=== PATIENT | female | born 1995 | race Caucasian/White ===

== ENCOUNTER 2018-08-23 12:11 | Emergency (ER) | payer SELFPAY ==
[~2018-08-23] VITALS: Ht 165.1 cm; Wt 57.7 kg
[2018-08-23] MEDS ORDERED: LIDOCAINE 2% W/EPIN INJ 20ML **PRES FREE INJ ONE (13:00)
[2018-08-23] MEDS ORDERED: IBUP80TA PO (13:03)
[2018-08-23] MEDS ORDERED: AUGM875T28 PO (13:03)
[2018-08-23] MEDS ORDERED: PERC5TAB12 PO (13:20)
[2018-08-23 13:27] VITALS: BP 116/72
== END 2018-08-23 13:29 | disposition home or self-care (01) ==
LOC: M ED 12:11
DX: K02.9 Dental caries, unspecified (principal); R68.84 Jaw pain; M41.9 Scoliosis, unspecified; Z88.8 Allergy status to other drugs, medicaments and biological substances; Z87.891 Personal history of nicotine dependence

== ENCOUNTER 2018-09-16 16:05 | Emergency (ER) | payer SELFPAY ==
[~2018-09-16] VITALS: Ht 165.1 cm; Wt 58.2 kg
[~2018-09-16 16:05] MED LIST: AUGM875T28 PO; IBUP80TA PO; PERC5TAB12 PO
[2018-09-16 18:42] LABS: BASO # 0.1 10^3/uL (0.0-0.2); BASO % 0.7 % (0.0-1.0); EOS # 0.1 10^3/uL (0.0-0.50); HEMATOCRIT 34.4 % (36.0-47.0); HEMOGLOBIN 9.9 g/dl (12.0-15.5); LYMPH # 2.3 10^3/uL (1.5-6.5); LYMPH % 32.3 % (24.0-44.0); MEAN CORPUSCULAR HEMOGLOBIN 19.6 pg (27.0-33.0); MEAN CORPUSCULAR HGB CONC 28.8 g/dl (32.0-36.5); MEAN CORPUSCULAR VOLUME 68.1 fl (80.0-96.0); MONO # 0.7 10^3/uL (0.0-0.8); MONO % 9.2 % (0.0-5.0); NEUTROPHILS % 56.5 % (36.0-66.0); PLATELET COUNT, AUTOMATED 394 10^3/uL (150-450); RED BLOOD COUNT 5.05 10^6/uL (4.00-5.40); WHITE BLOOD COUNT 7.1 10^3/uL (4.0-10.0)
[2018-09-16 19:08] LABS: ALBUMIN 3.7 GM/DL (3.2-5.2); ALT/SGPT 20 U/L (12-78); BILIRUBIN,DIRECT 0.1 MG/DL (0.0-0.2); BILIRUBIN,TOTAL 0.4 MG/DL (0.2-1.0); BLOOD UREA NITROGEN 18 MG/DL (7-18); CALCIUM LEVEL 8.7 MG/DL (8.5-10.1); CARBON DIOXIDE LEVEL 28 MEQ/L (21-32); CHLORIDE LEVEL 105 MEQ/L (98-107); GLOMERULAR FILTRATION RATE > 60.0 (>60); GLUCOSE, FASTING 74 MG/DL (70-100); LIPASE 102 U/L (73-393); POTASSIUM SERUM 3.8 MEQ/L (3.5-5.1); SODIUM LEVEL 140 MEQ/L (136-145); TOTAL PROTEIN 8.5 GM/DL (6.4-8.2)
[2018-09-16 20:02] VITALS: BP 129/74
--- NOTE | 2018-09-16 20:18 | REPVR ---
EXAM: US Pelvis Complete, Transabdominal and US Pelvis, Transvaginal EXAM DATE/TIME: 09/16/2018 7:38 PM CLINICAL HISTORY: 22 years old, female; Pelvic pain; Additional info: Pelvic pain; R/O cyst/endometriosis TECHNIQUE: Imaging protocol: Real-time transabdominal and transvaginal pelvic ultrasound (complete) with image documentation. Transvaginal imaging was used for better evaluation of the endometrium and adnexa. COMPARISON: No relevant prior studies available. FINDINGS: Uterus/cervix: Uterus measures 8.7 x 4.9 x 5.6 cm. Endometrial echocomplex measures 12.6 mm. Finding consistent with late proliferative phase. Right adnexa: Right ovary measures 3.2 x 2.3 x 2.7 cm. Resistive index 0.47. Left adnexa: Left ovary measures 3.6 x 2.2 x 2.4 cm. resistive index 0.57. Complex lesion in the left ovary measures 2.4 x 2 x 2 centimeters demonstrating increased Doppler flow. Finding may represent a corpus luteum. Free fluid: Trace of free fluid in the left cul-de-sac. Bladder: Normal. IMPRESSION: Thickened endometrial echo complex consistent with cycle stage. Complex lesion left ovary likely represents a corpus luteum. Electronically signed by: Anthony Coffey On 09/16/2018 20:17:37 PM
--- NOTE | 2018-09-18 14:10 | ED PDOC ---
Post-Departure Follow-Up dr ross faxed formal report of pelvis us for fu Ashley Urbina MD September 18, 2018 14:10
== END 2018-09-16 20:09 | disposition home or self-care (01) ==
LOC: M ED 16:05
DX: D50.9 Iron deficiency anemia, unspecified (principal); R10.2 Pelvic and perineal pain; J45.909 Unspecified asthma, uncomplicated; Z88.8 Allergy status to other drugs, medicaments and biological substances

== ENCOUNTER 2018-09-22 13:24 | Emergency (ER) | payer MEDICAID, OTHER, SELFPAY ==
[~2018-09-22] VITALS: Ht 165.1 cm; Wt 60.5 kg
[2018-09-22 14:04] LABS: BASO % 0.6 % (0.0-1.0); EOS # 0.1 10^3/uL (0.0-0.50); EOS % 1.9 % (0.0-3.0); HEMATOCRIT 33.9 % (36.0-47.0); HEMOGLOBIN 9.8 g/dl (12.0-15.5); LYMPH # 1.6 10^3/uL (1.5-6.5); MEAN CORPUSCULAR HGB CONC 28.9 g/dl (32.0-36.5); MEAN CORPUSCULAR VOLUME 69.3 fl (80.0-96.0); MONO # 0.5 10^3/uL (0.0-0.8); MONO % 7.3 % (0.0-5.0); NEUTROPHILS # 4.6 10^3/uL (1.8-7.7); NEUTROPHILS % 67.1 % (36.0-66.0); PLATELET COUNT, AUTOMATED 328 10^3/uL (150-450); RED BLOOD COUNT 4.89 10^6/uL (4.00-5.40); WHITE BLOOD COUNT 6.9 10^3/uL (4.0-10.0)
[2018-09-22 14:30] LABS: ALBUMIN 3.4 GM/DL (3.2-5.2); ALT/SGPT 19 U/L (12-78); BILIRUBIN,DIRECT < 0.1 MG/DL (0.0-0.2); BILIRUBIN,TOTAL 0.5 MG/DL (0.2-1.0); BLOOD UREA NITROGEN 15 MG/DL (7-18); CALCIUM LEVEL 8.2 MG/DL (8.5-10.1); CARBON DIOXIDE LEVEL 27 MEQ/L (21-32); CHLORIDE LEVEL 104 MEQ/L (98-107); CREATININE FOR GFR 0.77 MG/DL (0.55-1.30); GLOMERULAR FILTRATION RATE > 60.0 (>60); GLUCOSE, FASTING 80 MG/DL (70-100); LIPASE 131 U/L (73-393); POTASSIUM SERUM 3.7 MEQ/L (3.5-5.1); SODIUM LEVEL 141 MEQ/L (136-145); TOTAL PROTEIN 7.8 GM/DL (6.4-8.2)
--- NOTE | 2018-09-22 15:48 | REP ---
Clinical: Acute pelvic pain . Technique: Transabdominal pelvic ultrasound followed by transvaginal examination for better evaluation of the endometrium and adnexa with color Doppler evaluation of the ovaries. Comparison: 09/16/2018 Findings: Bladder is unremarkable and measures 6.2 x 5.4 x 8.9 cm . Anteverted uterus measures 9.9 x 5.5 x 7.4 cm and includes 1.1 cm left anterior intramural fibroid. The endometrial complex measures 10.8 mm thickness. No discrete uterine or endometrial abnormalities are appreciated. Bilateral ovaries are normal in appearance and vascularity without evidence for torsion. Right ovary measures 3.7 x 1.4 x 1.9 cm with 2.2 cm paraovarian cyst ; R I = 0.60 . Left ovary measures 4.3 x 2.1 x 2.6 cm with 1.8 cm hemorrhagic cyst ; R I = 0.46 . No pelvic fluid or adnexal mass lesion. Impression: 1. Current examination suggests a 1.1 cm intramural fibroid which was not identified on prior examination. 2. Left hemorrhagic cyst has decreased in size from prior examination. 3. New 2.2 cm simple right paraovarian cyst likely physiologic. There is no evidence for torsion. Reevaluation in 4-6 weeks may be warranted to evaluate for resolution. Electronically Signed by Chinmay Webster MD 09/22/2018 03:39 P
[2018-09-22 15:53] LABS: HCG, SERUM QUALITATIVE NEGATIVE (NEGATIVE)
[2018-09-22] MEDS ORDERED: DIFL150T PO (16:24)
[2018-09-22 16:29] VITALS: BP 127/88
[2018-09-22 17:52] LABS: CHLAMYDIA DNA AMPLIFICATION NEGATIVE (NEGATIVE); GC DNA AMPLIFICATION NEGATIVE (NEGATIVE)
--- NOTE | 2018-09-24 16:21 | ED PDOC ---
Post-Departure Follow-Up dr joseph faxed formal report of [facility] for fu Ashley Urbina MD September 24, 2018 16:21
== END 2018-09-22 16:35 | disposition home or self-care (01) ==
LOC: M ED 13:24
DX: N83.291 Other ovarian cyst, right side (principal); N83.292 Other ovarian cyst, left side; B37.3 Candidiasis of vulva and vagina; D25.9 Leiomyoma of uterus, unspecified; J45.909 Unspecified asthma, uncomplicated; Z88.8 Allergy status to other drugs, medicaments and biological substances

== ENCOUNTER 2018-11-03 18:18 | Emergency (ER) | payer MEDICAID, OTHER ==
[~2018-11-03] VITALS: Ht 165.1 cm; Wt 57.1 kg
[~2018-11-03 18:18] MED LIST changes: +DIFL150T PO
[2018-11-03 19:20] LABS: BASO % 0.6 % (0.0-1.0); EOS % 0.4 % (0.0-3.0); HEMATOCRIT 34.1 % (36.0-47.0); HEMOGLOBIN 10.2 g/dl (12.0-15.5); LYMPH # 1.8 10^3/uL (1.5-6.5); LYMPH % 25.4 % (24.0-44.0); MEAN CORPUSCULAR HEMOGLOBIN 20.5 pg (27.0-33.0); MEAN CORPUSCULAR HGB CONC 29.9 g/dl (32.0-36.5); MEAN CORPUSCULAR VOLUME 68.6 fl (80.0-96.0); MONO # 0.6 10^3/uL (0.0-0.8); MONO % 8.5 % (0.0-5.0); NEUTROPHILS # 4.6 10^3/uL (1.8-7.7); NEUTROPHILS % 64.8 % (36.0-66.0); PLATELET COUNT, AUTOMATED 349 10^3/uL (150-450); RED BLOOD COUNT 4.97 10^6/uL (4.00-5.40); WHITE BLOOD COUNT 7.1 10^3/uL (4.0-10.0)
[2018-11-03 19:30] LABS: BLOOD UREA NITROGEN 11 MG/DL (7-18); CALCIUM LEVEL 8.5 MG/DL (8.5-10.1); CARBON DIOXIDE LEVEL 23 MEQ/L (21-32); CHLORIDE LEVEL 105 MEQ/L (98-107); CREATININE FOR GFR 0.86 MG/DL (0.55-1.30); GLOMERULAR FILTRATION RATE > 60.0 (>60); GLUCOSE, FASTING 87 MG/DL (70-100); HCG, SERUM QUALITATIVE POSITIVE (NEGATIVE); HCG, SERUM QUANTITATIVE 312 MIU/ML; POTASSIUM SERUM 3.7 MEQ/L (3.5-5.1); SODIUM LEVEL 136 MEQ/L (136-145)
[2018-11-03] MEDS ORDERED: KEFL500C17 PO (21:30)
[2018-11-03 21:58] VITALS: BP 122/75
== END 2018-11-03 21:59 | disposition home or self-care (01) ==
LOC: M ED 18:18
DX: O23.40 Unspecified infection of urinary tract in pregnancy, unspecified trimester (principal); O99.611 Diseases of the digestive system complicating pregnancy, first trimester; Z79.82 Long term (current) use of aspirin; Z3A.01 Less than 8 weeks gestation of pregnancy

== ENCOUNTER → 2018-12-02 | Outpatient (CLI) | payer OTHER ==
[~2018-12-02] MED LIST changes: +KEFL500C17 PO
[2018-12-02 17:47] LABS: BASO # 0.1 10^3/uL (0.0-0.2); BASO % 0.8 % (0.0-1.0); EOS # 0.1 10^3/uL (0.0-0.50); EOS % 1.1 % (0.0-3.0); HEMATOCRIT 35.5 % (36.0-47.0); HEMOGLOBIN 10.6 g/dl (12.0-15.5); LYMPH # 2.1 10^3/uL (1.5-6.5); LYMPH % 23.4 % (24.0-44.0); MEAN CORPUSCULAR HEMOGLOBIN 20.7 pg (27.0-33.0); MEAN CORPUSCULAR HGB CONC 29.9 g/dl (32.0-36.5); MEAN CORPUSCULAR VOLUME 69.3 fl (80.0-96.0); MONO # 0.8 10^3/uL (0.0-0.8); NEUTROPHILS # 5.9 10^3/uL (1.8-7.7); NEUTROPHILS % 64.9 % (36.0-66.0); PLATELET COUNT, AUTOMATED 423 10^3/uL (150-450); RED BLOOD COUNT 5.12 10^6/uL (4.00-5.40)
[2018-12-02 19:31] LABS: CHLAMYDIA DNA AMPLIFICATION NEGATIVE (NEGATIVE); GC DNA AMPLIFICATION NEGATIVE (NEGATIVE)
[2018-12-03 10:59] LABS: HEPATITIS C VIRUS ABY INDEX 0.1 INDEX (<0.8); HIV 1&2 SCREEN CENTAUR NEGATIVE (NEGATIVE); RUBELLA IgG QUALITATIVE IMMUNE (IMMUNE)
== END ==
LOC: M SMT 14:07
PROVIDERS: ATTEND Advanced Practice Midwife
DX: Z36.89 Encounter for other specified antenatal screening (principal)